=== PATIENT | female | born 1980 | race Hispanic/Latino ===

== ENCOUNTER 2018-04-09 21:39 | Emergency (ER) | payer OTHER ==
[2018-04-09 23:18] VITALS: RESP 16; O2SAT 100
--- NOTE | 2018-04-10 01:51 | ED PDOC ---
HPI: Headache Time Seen by Provider: 04/10/18 01:10 Chief Complaint (Nursing): Headache Chief Complaint (Provider): Head Injury History Per: Patient History/Exam Limitations: no limitations Onset/Duration Of Symptoms: Hrs (17:00) Additional Complaint(s): 37 y/o female with no PMHx presents to the ED s/p head injury around 17:00. Patient states that she fell backwards while in a seated position and hit the back of her head. She denies loss of consciousness, nausea or vomiting. Patient just reports mild head pain to back of neck. Patient applied ice pack and only has a small bump to the site. She denies dizziness. Patient felt she should get evaluated due to the impact of injury. Past Medical History Reviewed: Historical Data, Nursing Documentation, Vital Signs Vital Signs: Last Vital Signs Temp Pulse 65 04/09/18 23:17 Resp 16 04/09/18 23:17 BP 115/77 04/09/18 23:17 Pulse Ox 100 04/09/18 23:17 - Medical History PMH: No Chronic Diseases - Surgical History Surgical History: No Surg Hx - Family History Family History: States: Unknown Family Hx - Social History Current smoker - smoking cessation education provided: No Alcohol: None Drugs: Denies - Allergies Allergies/Adverse Reactions: Allergies Allergy/AdvReac Type Severity Reaction Status Date / Time No Known Allergies Allergy Verified 04/09/18 23:16 Review of Systems ROS Statement: Except As Marked, All Systems Reviewed And Found Negative Gastrointestinal: Negative for: Nausea, Vomiting Musculoskeletal: Positive for: Other (back of head pain) Neurological: Positive for: Headache. Negative for: Dizziness Physical Exam - Reviewed Nursing Documentation Reviewed: Yes Vital Signs Reviewed: Yes - Physical Exam Appears: Positive for: Well, Non-toxic, No Acute Distress Head Exam: Negative for: ATRAUMATIC (small 1 cm hematoma to posterior aspect of head on occipital scalp) Skin: Positive for: Normal Color, Warm, Dry Eye Exam: Positive for: EOMI, Normal appearance, PERRL Neck: Positive for: Normal, Painless ROM, Supple Cardiovascular/Chest: Positive for: Regular Rate, Rhythm. Negative for: Murmur Respiratory: Positive for: Normal Breath Sounds. Negative for: Respiratory Distress Gastrointestinal/Abdominal: Positive for: Normal Exam, Soft. Negative for: Tenderness Extremity: Positive for: Normal ROM. Negative for: Pedal Edema, Deformity Neurologic/Psych: Positive for: Alert, Oriented. Negative for: Motor/Sensory Deficits - ECG O2 Sat by Pulse Oximetry: 100 (RA) Pulse Ox Interpretation: Normal Medical Decision Making Medical Decision Making: Time: 01:10 Initial Impression: 37 y/o female wiht minor head injury Initial Plan: Discussed risks vs benefits of CT. Patient in agreement that given that symptoms are too minor to indicate radiation exposure from CT. Patient will return if symptoms worsen. Diagnosis is minor head injury. Scribe Attestation: Documented by Randy Casas acting as a scribe for Norman Edouard MD. Provider Scribe Attestation: All medical record entries made by the Scribe were at my direction and personally dictated by me. I have reviewed the chart and agree that the record accurately reflects my personal performance of the history, physical exam, medical decision making, and the department course for this patient. I have also personally directed, reviewed, and agree with the discharge instructions and disposition. Disposition - Clinical Impression Clinical Impression: Head injury - Disposition Disposition: Routine/Home Disposition Time: 01:15 Condition: STABLE Instructions: Minor Head Injury Forms: [employer] (Vietnamese)
[2018-04-10 03:46] VITALS: BP 119/64; PULSE 84; TEMP 97.7
== END 2018-04-10 01:50 | disposition home or self-care (01) ==
LOC: H.ER 21:39
DX: S09.90XA Unspecified injury of head, initial encounter (principal); W19.XXXA Unspecified fall, initial encounter; Y92.89 Other specified places as the place of occurrence of the external cause